=== PATIENT | female | born 1975 | race Caucasian/White ===

== ENCOUNTER 2018-09-26 19:38 | Emergency (ER) | payer BC ==
[~2018-09-26] VITALS: Ht 170.2 cm; Wt 117.9 kg
[2018-09-26 19:41] VITALS: BP 162/88; Ht 170.2 cm; Wt 117.9 kg
[2018-09-26 20:27] LABS: APPEARANCE CLEAR (CLEAR); BILIRUBIN NEGATIVE (NEGATIVE); COLOR YELLOW (YELLOW); GLUCOSE 50 mg/dL (NEGATIVE); KETONE NEGATIVE (NEGATIVE); NITRITE NEGATIVE (NEGATIVE); PROTEIN NEGATIVE (NEGATIVE); UROBILINOGEN NORMAL (NORMAL)
[2018-09-26 20:30] LABS: HCG URINE NEGATIVE (NEGATIVE)
[2018-09-26] MEDS ORDERED: VALIUM 2 MG TAB2 MG PO (20:58)
[2018-09-26] MEDS ORDERED: ULTRAM50 MG PO (20:58)
== END 2018-09-26 22:01 | disposition home or self-care (01) ==
LOC: D.ER 19:38
PROVIDERS: Emergency Medicine
DX: S80.01XA Contusion of right knee, initial encounter (principal); V43.62XA Car passenger injured in collision with other type car in traffic accident, initial encounter; Y93.89 Activity, other specified; Y92.410 Unspecified street and highway as the place of occurrence of the external cause; S46.911A Strain of unspecified muscle, fascia and tendon at shoulder and upper arm level, right arm, initial encounter; S13.4XXA Sprain of ligaments of cervical spine, initial encounter; M25.511 Pain in right shoulder; F17.200 Nicotine dependence, unspecified, uncomplicated; R51 Headache

== ENCOUNTER → 2018-10-02 10:33 | Outpatient (CLI) | payer BC ==
[~2018-10-02 10:33] MED LIST: ULTRAM50 MG PO; VALIUM 2 MG TAB2 MG PO
== END | disposition home or self-care (01) ==
LOC: D.MRI 10:33
DX: S06.0X0D Concussion without loss of consciousness, subsequent encounter (principal); X58.XXXA Exposure to other specified factors, initial encounter